=== PATIENT | female | born 1990 | race Caucasian/White ===

== ENCOUNTER 2016-10-12 19:11 | Emergency (ER) | payer SELFPAY ==
--- OUTSIDE RECORDS SUMMARY | 2016-10-12 21:12 | XMS REPORT | Continuity of Care Document ---
:1990 Author Organization [facility] ([facility]) Address [address] [place] [address] Phone [phone] Care Team Providers Name Role Phone Hamzah Coelho Primary Care Provider Unavailable Source Comments This disclosure is being made pursuant to the Care Everywhere program, applicable federal and state laws, and may not contain all informaitonavailable regarding this patient.[facility] ([facility]) Active Allergies and Adverse Reactions Not on File Current Medications Not on file Active Problems Not on file Social History Tobacco Use Types Packs/Day Years Used Date Never Assessed Plan of Care Health Maintenance Due Date Last Done Comments Hepatitis B Vaccine (1 of 3 - Primary Series) 1990 HPV Vaccine (1 of 3 - Female/Unknown 3 Dose Series) 2001 Tdap Vaccine 2001 Cervical Cancer Screening 2008 Lipid Disorder Screening 2008 MMR Vaccine 2008 Td Vaccine 2008 Varicella Vaccine (1 of 2 - Adult - No Evidence of 2008 Immunity) Influenza Vaccine: Seasonal (#1) 01/17/2016 Results from Last 3 Months Not on file
--- NOTE | 2016-10-12 21:25 | ERNOTE ---
Integumentary HPI - Narrative Date of Service: 10/12/16 - General Presenting Symptoms: rash Time Seen by Provider: 10/12/16 20:39 Source: patient Exam Limitations: no limitations - Immun/Allergies/Home Medications Immunizations: IMMUNIZATION HX Immunizations Up to Date Yes History of Influenza Vaccine No Hx Pneumococcal Vaccination No Allergies/Adverse Reactions: Allergies Allergy/AdvReac Type Severity Reaction Status Date / Time No Known Allergies Allergy Unverified 09/18/14 10:45 Home Medications: HOME MEDICATIONS NK [No Home Medication] 10/12/16 [Last Taken Unknown] - Pain Pain Score: 0 - History of Present Illness Narrative: 25-year-old female comes in for a rash to bilateral forearms hands and elbows. States that she's noticed it since Sunday and has not gotten better with OTC benadryl. Date (Duration): 10/12/16 Location: Reports: upper extremity - elbows down, hands Quality: Reports: itching Severity: mild Exposure: Reports: soaps/detergent, other - degreeser at work Review of Systems - Review of Systems Constitutional: Present: no symptoms reported EYE: Present: blurred vision ENT: Present: no symptoms reported Respiratory: Present: no symptoms reported Cardiology: Present: no symptoms reported Gastrointestinal/Abdominal: Present: no symptoms reported Genitourinary: Present: no symptoms reported Musculoskeletal: Present: no symptoms reported Skin: Present: See HPI, rash Neurological: Present: no symptoms reported Endocrine: Present: no symptoms reported Hematologic/Lymphatic: Present: no symptoms reported Psych: Present: no symptoms reported All Other Systems: All systems neg except as marked - Patient's Past Medical History Patient History - Medical: No pertinent hx, GERD Patient History - Cardiac/Respiratory: No pertinent hx Patient History - Cancer: No Hx of Cancer Patient History - Surgical Procedures: Other Patient History - Other: None LMP (females 10-50): 3 weeks - Social History Living Situations: home Psych History: No pertinent hx Smoking Status: Never smoker Alcohol Use: sober Drug Use: none - Immunizations Immunizations Up to Date: Yes Hx Pneumococcal Vaccination: No History of Influenza Vaccine: No Physical Exam - Physical Exam Narrative: bilateral forearms including elbows and hands have a red circular raised rash all over her arms. 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 General Appearance: Present: wd/wn, alert, no apparent distress Eye Exam: Normal inspection: bilateral Ears, Nose, Throat: Present: normal ENT inspection, normal pharynx Neck: Present: normal inspection, nontender Respiratory: Present: no respiratory distress, normal breath sounds, lungs clear Cardiovascular/Chest: Present: regular rate, rhythm, no murmur Gastrointestinal/Abdominal: Present: normal bowel sounds, nontender, soft Back Exam: Present: normal inspection, normal range of motion Extremity Exam: Present: normal inspection, normal range of motion, no edema Neurological Exam: Present: alert, oriented, normal mood/affect Skin Exam: Present: skin rash Lymphatic Exam: Present: no adenopathy ED Progress - Vital Signs Patient's Vital Signs:: I have reviewed the patient's vital signs. Vital Signs: Vital Signs 10/12/16 19:29 Temperature 36.8 C Pulse Rate 98 Respiratory 18 Rate Blood Pressure 137/92 O2 Sat by Pulse 100 Oximetry - Progress/Reassessment Chief Complaint: Rash Progress:: Unchanged Departure Clinical Impression: Rash and nonspecific skin eruption - Departure Disposition: Home Follow Up Needed Condition: Stable Instructions: Allergies, [id number], Psoriasis, Contact Dermatitis, Easy-to- Read Additional Instructions: Any any previous home medications. He may buy [id number] Eucerin to apply to skin. Follow-up with dermatology in the next 2-3 days. Return to the emergency room if symptoms worsens or if new symptoms. Follow up with Her primary care in the next 2-3 days if needed. Referrals: Rocael Virgen MD [Primary Care Provider] -
[2016-10-12 21:35] VITALS: BP 122/82
== END 2016-10-12 21:31 | disposition home or self-care (01) ==
LOC: ER 19:11
DX: R21 Rash and other nonspecific skin eruption (principal)